=== PATIENT | female | born 1990 | race Caucasian/White ===

== ENCOUNTER 2021-04-07 09:44 | Emergency (ER) | payer BC ==
[~2021-04-07] VITALS: Ht 162.6 cm; Wt 62.1 kg
[2021-04-07] MEDS ORDERED: ONDANSETRON HCL 4 MG ORAL DISINTEGRATING TAB PO ONE (10:15)
[2021-04-07] MEDS ORDERED: ONDANSETRON HCL 4 MG ORAL DISINTEGRATING TAB ONE (10:31)
[2021-04-07 11:22] VITALS: BP 103/66
== END 2021-04-07 11:39 | disposition home or self-care (01) ==
LOC: ER 10:15
DX: U07.1 COVID-19 (principal); R50.9 Fever, unspecified; R05 Cough; R11.0 Nausea; R94.31 Abnormal electrocardiogram [ECG] [EKG]; I34.1 Nonrheumatic mitral (valve) prolapse
CPT/HCPCS: 71045; 93005; 99283; Q0162